=== PATIENT | male | born 1990 | race Two or more races ===

== ENCOUNTER 2019-10-27 00:29 | Emergency (ER) | payer OTHER ==
[~2019-10-27] VITALS: Ht 172.7 cm; Wt 88.5 kg
[2019-10-27] MEDS ORDERED: KETO10TA2 PO ×2 (02:41→02:43)
[2019-10-27] MEDS ORDERED: DUI500 PO (02:43)
[2019-10-27] MEDS ORDERED: MUPIROCIN22 GM TOP ×2 (02:43)
== END 2019-10-27 02:52 | disposition home or self-care (01) ==
LOC: ER 00:29
DX: L73.8 Other specified follicular disorders (principal)